=== PATIENT | female | born 2000 | race Caucasian/White ===

== ENCOUNTER 2023-03-14 17:11 | Inpatient (IN) | payer MEDICAID ==
[~2023-03-14] VITALS: Ht 160 cm; Wt 59.7 kg
[2023-03-14 20:12] LABS: BASOPHILS % (AUTO) 0.5 % (0.0-2.0); EOSINOPHILS % (AUTO) 0.9 % (1.0-6.0); LYMPHOCYTES # (AUTO) 2.3 K/uL (1.0-4.8); LYMPHOCYTES % (AUTO) 25.9 % (22.0-44.0); MEAN CORPUSCULAR HGB CONC 32.7 G/dL (31.0-37.0); MEAN CORPUSCULAR VOLUME 86 fL (80-100); MONOCYTES # (AUTO) 0.5 K/uL (0.1-1.0); MONOCYTES % (AUTO) 5.5 % (2.0-9.0); NEUTROPHILS # (AUTO) 5.9 K/uL (1.8-7.7); NEUTROPHILS % (AUTO) 67.2 % (40.0-70.0); PLATELET COUNT (AUTO) 194 K/uL (150-450); RED BLOOD CELL COUNT(AUTO) 5.01 MIL/uL (4.00-5.20); RED CELL DISTRIBUTION WIDTH 13.6 % (11.5-14.5); WHITE BLOOD COUNT (AUTO) 8.8 K/uL (4.5-11.0)
[2023-03-14 20:18] LABS: ANION GAP 14 mmol/L (8-16); CARBON DIOXIDE 22 mmol/L (22-29); CHLORIDE 104 mmol/L (98-107); CREATININE 0.66 mg/dL (0.60-1.30); GLOMERULAR FILTR. RATE CALC > 60 mL/min (>60); GLUCOSE,RANDOM 93 mg/dL (70-110); POTASSIUM 3.4 mmol/L (3.5-5.1); SODIUM SERUM 140 mmol/L (136-145); UREA NITROGEN, BLOOD 13 mg/dL (7-18)
[2023-03-14 20:24] LABS: ALANINE AMINOTRANSFERASE 30 U/L (12-78); ALBUMIN 4.2 g/dL (3.4-5.0); ALKALINE PHOSPHATASE 88 U/L (46-116); ASPARTATE AMINOTRANSFERASE 23 U/L (15-37); BILIRUBIN,TOTAL 0.3 mg/dL (0.1-1.0); TOTAL PROTEIN, SERUM 7.8 g/dL (6.4-8.2)
[2023-03-14 20:29] LABS: ALCOHOL, BLOOD (SERUM) < 3 mg/dL (0-10)
[2023-03-14 23:22] LABS: COVID AG,FIA SOURCE NASOPHARYNGEAL
[2023-03-14 23:25] LABS: SARS-COV2 (COVID) ANTIGEN,FIA Negative (Negative)
[2023-03-15] MEDS ORDERED: POTASSIUM CHLORIDE 10% 40 MEQ/30 ML LIQUID UDCUP PO ONE (01:00)
[2023-03-15 07:54] LABS: ALCOHOL, URINE DRUG SCREEN NEGATIVE (NEGATIVE); AMPHET/METH SCREEN,URINE NEGATIVE (NEGATIVE); BARBITURATE SCREEN, URINE NEGATIVE (NEGATIVE); BENZODIAZEPINES SCREEN,URINE NEGATIVE (NEGATIVE); CANNABINOID SCREEN,URINE NEGATIVE (NEGATIVE); COCAINE SCREEN,URINE NEGATIVE (NEGATIVE); METHADONE SCREEN, URINE NEGATIVE (NEGATIVE); OPIATE SCREEN,URINE NEGATIVE (NEGATIVE); PHENCYCLIDINE SCREEN,URINE NEGATIVE (NEGATIVE)
[2023-03-15] MEDS ORDERED: PROMETHAZINE HCL 25 MG TABLET PO PRN (09:00)
[2023-03-15] MEDS ORDERED: LOPERAMIDE HCL 2 MG CAPSULE PO PRN (09:00)
[2023-03-15] MEDS ORDERED: TUBERCULIN, PURIFIED PROTEIN DERIVATIVE 5 TU/0.1 ML SYRINGE ID ONE (09:00)
[2023-03-15] MEDS ORDERED: MAG HYDROX/ALUMINUM HYD/SIMETH ES 30 ML SUSPENSION UDCUP PO PRN (09:00)
[2023-03-15] MEDS ORDERED: MAGNESIUM HYDROXIDE SUSPENSION 30 ML UDCUP PO PRN (09:00)
[2023-03-15] MEDS ORDERED: HydrOXYzine PAMOATE 50 MG CAPSULE PO PRN (09:00)
[2023-03-15] MEDS ORDERED: ZOLPIDEM TARTRATE 10 MG TABLET PO PRN (09:00)
[2023-03-15] MEDS ORDERED: GuaiFENesin/D-METHORPHAN [SUGAR-FREE] 200-20MG/10 ML SYRUP UDCUP PO PRN (09:00)
[2023-03-15] MEDS: FOLIC ACID 1 MG TABLET PO SCH (09:28)
[2023-03-15] MEDS: OMEGA-3/DHA/EPA/FISH OIL 1,000 MG CAPSULE PO SCH (09:29)
[2023-03-15] MEDS: THIAMINE 100 MG TABLET PO SCH ×2 (09:29→16:06)
[2023-03-15] MEDS: MULTIVITAMINS WITH MINERALS, THERAPEUTIC TABLET PO SCH (09:29)
[2023-03-15] MEDS: LORazepam 2 MG TABLET PO PRN (14:03)
[2023-03-15] MEDS: OLANZapine 5 MG RAPDIS TABLET PO PRN (14:03)
[2023-03-15] MEDS ORDERED: DiphenhydrAMINE HCL 50 MG/ML VIAL IM ONE (15:00)
[2023-03-15] MEDS ORDERED: HALOPERIDOL LACTATE 5 MG/ML VIAL IM ONE (15:00)
[2023-03-15] MEDS ORDERED: LORazepam 2 MG/ML VIAL IM ONE (15:00)
[2023-03-15 20:05] VITALS: BP 109/69; PULSE 94; RESP 18; TEMP 97.8; O2SAT 98
[2023-03-15] MEDS: DIVALPROEX SODIUM 500 MG ER TABLET PO SCH (20:31)
[2023-03-15] MEDS: MELATONIN 5 MG TABLET PO SCH (20:32)
[2023-03-15] MEDS: OLANZapine 5 MG RAPDIS TABLET PO SCH (20:32)
[2023-03-16 08:25] VITALS: RESP 16
[2023-03-16] MEDS: OMEGA-3/DHA/EPA/FISH OIL 1,000 MG CAPSULE PO SCH (08:28)
[2023-03-16] MEDS: FOLIC ACID 1 MG TABLET PO SCH (08:28)
[2023-03-16] MEDS: THIAMINE 100 MG TABLET PO SCH ×2 (08:28→16:04)
[2023-03-16] MEDS: MULTIVITAMINS WITH MINERALS, THERAPEUTIC TABLET PO SCH (08:28)
[2023-03-16 08:49] LABS: CHOL/HDL RATIO 1.8 (3.9-5.7); FREE T4 (FREE THYROXINE) 0.87 ng/dL (0.76-1.46); THYROID STIMULATING HORMONE 1.45 uIU/mL (0.36-3.74)
[2023-03-16 08:55] LABS: HEMOGLOBIN A1C 5.5 % (3.8-5.6)
[2023-03-16] MEDS: MELATONIN 5 MG TABLET PO SCH (20:06)
[2023-03-16] MEDS: DIVALPROEX SODIUM 500 MG ER TABLET PO SCH (20:06)
[2023-03-16] MEDS: OLANZapine 5 MG RAPDIS TABLET PO SCH (20:06)
[2023-03-16 20:26] VITALS: BP 103/64; PULSE 88; RESP 17; TEMP 97.6; O2SAT 97
[2023-03-17] MEDS: THIAMINE 100 MG TABLET PO SCH ×2 (08:14→16:13)
[2023-03-17] MEDS: LORazepam 2 MG TABLET PO PRN (08:14)
[2023-03-17] MEDS: OMEGA-3/DHA/EPA/FISH OIL 1,000 MG CAPSULE PO SCH (08:14)
[2023-03-17] MEDS: FOLIC ACID 1 MG TABLET PO SCH (08:14)
[2023-03-17] MEDS: MULTIVITAMINS WITH MINERALS, THERAPEUTIC TABLET PO SCH (08:14)
[2023-03-17 08:27] VITALS: RESP 16
[2023-03-17 20:11] VITALS: BP 103/53; PULSE 63; RESP 18; TEMP 97.3; O2SAT 99
[2023-03-17] MEDS: MELATONIN 5 MG TABLET PO SCH (20:30)
[2023-03-17] MEDS: OLANZapine 10 MG RAPDIS TABLET PO SCH (20:30)
[2023-03-17] MEDS: DIVALPROEX SODIUM 500 MG ER TABLET PO SCH (20:30)
[2023-03-18] VITALS (8 sets, daily range): BP systolic 93–121; BP diastolic 46–77; PULSE 69–93; RESP 17–18; TEMP 97.9–98.7; O2SAT 96–98
[2023-03-18] MEDS: THIAMINE 100 MG TABLET PO SCH ×2 (09:05→17:46)
[2023-03-18] MEDS: OMEGA-3/DHA/EPA/FISH OIL 1,000 MG CAPSULE PO SCH (09:05)
[2023-03-18] MEDS: MULTIVITAMINS WITH MINERALS, THERAPEUTIC TABLET PO SCH (09:06)
[2023-03-18] MEDS: FOLIC ACID 1 MG TABLET PO SCH (09:06)
[2023-03-18] MEDS: LORazepam 2 MG TABLET PO PRN (09:06)
[2023-03-18] MEDS: OLANZapine 10 MG RAPDIS TABLET PO SCH (21:00)
[2023-03-18] MEDS: DIVALPROEX SODIUM 500 MG ER TABLET PO SCH (21:00)
[2023-03-18] MEDS: MELATONIN 5 MG TABLET PO SCH (21:00)
[2023-03-19 08:38] VITALS: BP 108/67; PULSE 74; RESP 16; TEMP 98.3; O2SAT 99
[2023-03-19] MEDS: OMEGA-3/DHA/EPA/FISH OIL 1,000 MG CAPSULE PO SCH (08:47)
[2023-03-19] MEDS: FOLIC ACID 1 MG TABLET PO SCH (08:47)
[2023-03-19] MEDS: MULTIVITAMINS WITH MINERALS, THERAPEUTIC TABLET PO SCH (08:47)
[2023-03-19] MEDS: THIAMINE 100 MG TABLET PO SCH ×2 (08:47→16:06)
[2023-03-19 20:10] VITALS: BP 118/67; PULSE 72; RESP 19; TEMP 97.8; O2SAT 100
[2023-03-19] MEDS: MELATONIN 5 MG TABLET PO SCH (20:45)
[2023-03-19] MEDS: OLANZapine 10 MG RAPDIS TABLET PO SCH (20:45)
[2023-03-19] MEDS: DIVALPROEX SODIUM 500 MG ER TABLET PO SCH (20:45)
[2023-03-20 08:02] VITALS: BP 111/62; PULSE 81; RESP 16; TEMP 98.1; O2SAT 99
[2023-03-20] MEDS: FOLIC ACID 1 MG TABLET PO SCH (08:56)
[2023-03-20] MEDS: MULTIVITAMINS WITH MINERALS, THERAPEUTIC TABLET PO SCH (08:56)
[2023-03-20] MEDS: THIAMINE 100 MG TABLET PO SCH ×2 (08:56→16:31)
[2023-03-20] MEDS: OMEGA-3/DHA/EPA/FISH OIL 1,000 MG CAPSULE PO SCH (08:56)
[2023-03-20] MEDS: LORazepam 2 MG TABLET PO PRN (08:57)
[2023-03-20 20:25] VITALS: BP 111/61; PULSE 101; RESP 19; TEMP 98.3; O2SAT 100
[2023-03-20] MEDS: MELATONIN 5 MG TABLET PO SCH (21:24)
[2023-03-20] MEDS: OLANZapine 10 MG RAPDIS TABLET PO SCH (21:24)
[2023-03-20] MEDS: DIVALPROEX SODIUM 500 MG ER TABLET PO SCH (21:25)
[2023-03-21] MEDS: OMEGA-3/DHA/EPA/FISH OIL 1,000 MG CAPSULE PO SCH (08:17)
[2023-03-21] MEDS: LORazepam 2 MG TABLET PO PRN (08:17)
[2023-03-21] MEDS: THIAMINE 100 MG TABLET PO SCH ×2 (08:17→16:37)
[2023-03-21] MEDS: MULTIVITAMINS WITH MINERALS, THERAPEUTIC TABLET PO SCH (08:17)
[2023-03-21] MEDS: FOLIC ACID 1 MG TABLET PO SCH (08:17)
[2023-03-21 08:24] VITALS: BP 113/67; PULSE 89; RESP 18; TEMP 96.9; O2SAT 98
[2023-03-21 20:14] VITALS: BP 106/61; PULSE 70; RESP 19; TEMP 98.3; O2SAT 96
[2023-03-21] MEDS: MELATONIN 5 MG TABLET PO SCH (20:34)
[2023-03-21] MEDS: OLANZapine 10 MG RAPDIS TABLET PO SCH (20:34)
[2023-03-21] MEDS: DIVALPROEX SODIUM 500 MG ER TABLET PO SCH (20:34)
[2023-03-22] MEDS: LITHIUM CARBONATE 300 MG CAPSULE PO SCH ×2 (06:29→16:47)
[2023-03-22 08:58] VITALS: BP 116/64; PULSE 75; RESP 17; TEMP 98; O2SAT 100
[2023-03-22] MEDS: OMEGA-3/DHA/EPA/FISH OIL 1,000 MG CAPSULE PO SCH (09:03)
[2023-03-22] MEDS: MULTIVITAMINS WITH MINERALS, THERAPEUTIC TABLET PO SCH (09:03)
[2023-03-22] MEDS: FOLIC ACID 1 MG TABLET PO SCH (09:03)
[2023-03-22] MEDS: THIAMINE 100 MG TABLET PO SCH ×2 (09:03→16:47)
[2023-03-22] MEDS: LORazepam 2 MG TABLET PO PRN (10:50)
[2023-03-22 20:12] VITALS: BP 110/59; PULSE 78; RESP 16; TEMP 99.1; O2SAT 96
[2023-03-22] MEDS: DIVALPROEX SODIUM 500 MG ER TABLET PO SCH (20:33)
[2023-03-22] MEDS: MELATONIN 5 MG TABLET PO SCH (20:33)
[2023-03-22] MEDS: OLANZapine 10 MG RAPDIS TABLET PO SCH (20:33)
[2023-03-23] MEDS: LITHIUM CARBONATE 300 MG CAPSULE PO SCH ×2 (06:23→16:37)
[2023-03-23] MEDS: FOLIC ACID 1 MG TABLET PO SCH (08:29)
[2023-03-23] MEDS: OMEGA-3/DHA/EPA/FISH OIL 1,000 MG CAPSULE PO SCH (08:29)
[2023-03-23] MEDS: THIAMINE 100 MG TABLET PO SCH ×2 (08:29→16:37)
[2023-03-23] MEDS: MULTIVITAMINS WITH MINERALS, THERAPEUTIC TABLET PO SCH (08:29)
[2023-03-23 08:47] VITALS: BP 102/62; PULSE 63; RESP 18; TEMP 97.6; O2SAT 95
[2023-03-23] MEDS ORDERED: LORazepam 2 MG/ML VIAL IM ONE (12:15)
[2023-03-23] MEDS ORDERED: DiphenhydrAMINE HCL 50 MG/ML VIAL IM ONE (12:15)
[2023-03-23] MEDS ORDERED: HALOPERIDOL LACTATE 5 MG/ML VIAL IM ONE (12:15)
[2023-03-23] MEDS: OLANZapine 5 MG RAPDIS TABLET PO PRN (12:56)
[2023-03-23] MEDS: LORazepam 2 MG TABLET PO PRN (12:56)
[2023-03-23 20:16] VITALS: BP 104/63; PULSE 70; RESP 18; TEMP 97.9; O2SAT 100
[2023-03-23] MEDS: MELATONIN 5 MG TABLET PO SCH (20:41)
[2023-03-23] MEDS: OLANZapine 10 MG RAPDIS TABLET PO SCH (20:41)
[2023-03-23] MEDS: TraZODone HCL 50 MG TABLET PO SCH (20:41)
[2023-03-23] MEDS: DIVALPROEX SODIUM 500 MG ER TABLET PO SCH (20:41)
[2023-03-24] MEDS: LITHIUM CARBONATE 300 MG CAPSULE PO SCH ×2 (07:12→17:06)
[2023-03-24 08:41] VITALS: BP 101/64; PULSE 75; RESP 18; TEMP 97.4; O2SAT 97
[2023-03-24] MEDS: LORazepam 2 MG TABLET PO PRN (08:41)
[2023-03-24] MEDS: OMEGA-3/DHA/EPA/FISH OIL 1,000 MG CAPSULE PO SCH (08:42)
[2023-03-24] MEDS: FOLIC ACID 1 MG TABLET PO SCH (08:43)
[2023-03-24] MEDS: THIAMINE 100 MG TABLET PO SCH (08:43)
[2023-03-24] MEDS: MULTIVITAMINS WITH MINERALS, THERAPEUTIC TABLET PO SCH (08:43)
[2023-03-24] MEDS: DIVALPROEX SODIUM 500 MG ER TABLET PO SCH (20:25)
[2023-03-24] MEDS: TraZODone HCL 50 MG TABLET PO SCH (20:25)
[2023-03-24] MEDS: OLANZapine 10 MG RAPDIS TABLET PO SCH (20:26)
[2023-03-24] MEDS: MELATONIN 5 MG TABLET PO SCH (20:26)
[2023-03-24 20:35] VITALS: BP 100/72; PULSE 98; RESP 18; TEMP 97.7; O2SAT 98
[2023-03-25] MEDS: LORazepam 2 MG TABLET PO PRN (08:12)
[2023-03-25] MEDS: MULTIVITAMINS WITH MINERALS, THERAPEUTIC TABLET PO SCH (08:12)
[2023-03-25] MEDS: OMEGA-3/DHA/EPA/FISH OIL 1,000 MG CAPSULE PO SCH (08:12)
[2023-03-25] MEDS: LITHIUM CARBONATE 300 MG CAPSULE PO SCH ×4 (08:12→21:32)
[2023-03-25 08:38] VITALS: BP 107/67; PULSE 82; RESP 18; TEMP 97.7; O2SAT 95
[2023-03-25 20:25] VITALS: BP 115/65; PULSE 80; RESP 17; TEMP 98.5; O2SAT 97
[2023-03-25] MEDS: DIVALPROEX SODIUM 500 MG ER TABLET PO SCH (21:31)
[2023-03-25] MEDS: MELATONIN 5 MG TABLET PO SCH (21:31)
[2023-03-25] MEDS: TraZODone HCL 50 MG TABLET PO SCH (21:32)
[2023-03-25] MEDS: OLANZapine 10 MG RAPDIS TABLET PO SCH (21:32)
[2023-03-26 08:23] VITALS: BP 115/68; PULSE 95; RESP 20; TEMP 97.6; O2SAT 98
[2023-03-26] MEDS: MULTIVITAMINS WITH MINERALS, THERAPEUTIC TABLET PO SCH (08:28)
[2023-03-26] MEDS: LORazepam 2 MG TABLET PO PRN (08:29)
[2023-03-26] MEDS: LITHIUM CARBONATE 300 MG CAPSULE PO SCH ×4 (08:29→20:56)
[2023-03-26] MEDS: OMEGA-3/DHA/EPA/FISH OIL 1,000 MG CAPSULE PO SCH (08:29)
[2023-03-26 20:38] VITALS: BP 119/74; PULSE 85; RESP 18; TEMP 98.1; O2SAT 98
[2023-03-26] MEDS: DIVALPROEX SODIUM 500 MG ER TABLET PO SCH (20:56)
[2023-03-26] MEDS: MELATONIN 5 MG TABLET PO SCH (20:56)
[2023-03-26] MEDS: OLANZapine 10 MG RAPDIS TABLET PO SCH (20:56)
[2023-03-26] MEDS: TraZODone HCL 50 MG TABLET PO SCH (20:56)
[2023-03-27] MEDS: LORazepam 2 MG TABLET PO PRN (08:23)
[2023-03-27] MEDS: LITHIUM CARBONATE 300 MG CAPSULE PO SCH ×4 (08:23→20:54)
[2023-03-27] MEDS: MULTIVITAMINS WITH MINERALS, THERAPEUTIC TABLET PO SCH (08:23)
[2023-03-27] MEDS: OMEGA-3/DHA/EPA/FISH OIL 1,000 MG CAPSULE PO SCH (08:24)
[2023-03-27 08:37] VITALS: BP 100/61; PULSE 94; RESP 18; TEMP 97.4; O2SAT 96
[2023-03-27 20:51] VITALS: BP 104/61; PULSE 98; RESP 18; TEMP 98.2; O2SAT 98
[2023-03-27] MEDS: OLANZapine 10 MG RAPDIS TABLET PO SCH (20:54)
[2023-03-27] MEDS: TraZODone HCL 50 MG TABLET PO SCH (20:54)
[2023-03-27] MEDS: DIVALPROEX SODIUM 500 MG ER TABLET PO SCH (20:54)
[2023-03-27] MEDS: MELATONIN 5 MG TABLET PO SCH (20:54)
[2023-03-28] MEDS: MULTIVITAMINS WITH MINERALS, THERAPEUTIC TABLET PO SCH (09:04)
[2023-03-28] MEDS: LITHIUM CARBONATE 300 MG CAPSULE PO SCH ×4 (09:04→20:38)
[2023-03-28] MEDS: LORazepam 2 MG TABLET PO PRN (09:05)
[2023-03-28] MEDS: OMEGA-3/DHA/EPA/FISH OIL 1,000 MG CAPSULE PO SCH (09:05)
[2023-03-28 10:00] VITALS: BP 140/89; PULSE 80; RESP 20; TEMP 98.5; O2SAT 97
[2023-03-28] MEDS: ACETAMINOPHEN 325 MG TABLET PO PRN (17:09)
[2023-03-28] MEDS: OLANZapine 10 MG RAPDIS TABLET PO SCH (20:38)
[2023-03-28] MEDS: MELATONIN 5 MG TABLET PO SCH (20:38)
[2023-03-28] MEDS: TraZODone HCL 50 MG TABLET PO SCH (20:38)
[2023-03-28] MEDS: DIVALPROEX SODIUM 500 MG ER TABLET PO SCH (20:38)
[2023-03-28 20:40] VITALS: BP 111/80; PULSE 98; RESP 17; TEMP 98.7; O2SAT 98
[2023-03-29 08:28] LABS: APPEARANCE,URINE CLEAR (CLEAR); BILIRUBIN,URINE NEGATIVE (NEGATIVE); COLOR,URINE YELLOW (YELLOW); GLUCOSE, URINE (UA) NEGATIVE (NEGATIVE); KETONES,URINE TRACE mg/dL (NEGATIVE); LEUKOCYTE ESTERASE ,URINE NEGATIVE (NEGATIVE); NITRATE,URINE NEGATIVE (NEGATIVE); OCCULT BLOOD,URINE NEGATIVE (NEGATIVE); PROTEIN,URINE TRACE mg/dL (NEGATIVE); UROBILINOGEN,URINE <=1.0 mg/dL (<=1.0)
[2023-03-29 08:29] LABS: BACTERIA,URINE None Seen /HPF (None Seen); RBC,URINE None Seen /HPF (0-2); WBC,URINE None Seen /HPF (0-5)
[2023-03-29 08:37] VITALS: BP 111/60; PULSE 94; RESP 18; TEMP 98; O2SAT 94
[2023-03-29 08:50] LABS: ALCOHOL, URINE DRUG SCREEN NEGATIVE (NEGATIVE); AMPHET/METH SCREEN,URINE NEGATIVE (NEGATIVE); BARBITURATE SCREEN, URINE NEGATIVE (NEGATIVE); BENZODIAZEPINES SCREEN,URINE NEGATIVE (NEGATIVE); CANNABINOID SCREEN,URINE NEGATIVE (NEGATIVE); COCAINE SCREEN,URINE NEGATIVE (NEGATIVE); METHADONE SCREEN, URINE NEGATIVE (NEGATIVE); OPIATE SCREEN,URINE NEGATIVE (NEGATIVE); PHENCYCLIDINE SCREEN,URINE NEGATIVE (NEGATIVE)
[2023-03-29] MEDS: LITHIUM CARBONATE 300 MG CAPSULE PO SCH ×4 (09:17→21:04)
[2023-03-29] MEDS: MULTIVITAMINS WITH MINERALS, THERAPEUTIC TABLET PO SCH (09:17)
[2023-03-29] MEDS: OMEGA-3/DHA/EPA/FISH OIL 1,000 MG CAPSULE PO SCH (09:17)
[2023-03-29] MEDS: OLANZapine 10 MG RAPDIS TABLET PO SCH (20:42)
[2023-03-29] MEDS: DIVALPROEX SODIUM 500 MG ER TABLET PO SCH (20:42)
[2023-03-29] MEDS: TraZODone HCL 50 MG TABLET PO SCH (20:42)
[2023-03-29] MEDS: MELATONIN 5 MG TABLET PO SCH (20:43)
[2023-03-29 20:47] VITALS: BP 105/67; PULSE 78; RESP 18; TEMP 98.2; O2SAT 96
[2023-03-30 08:32] VITALS: BP 125/81; PULSE 79; RESP 17; TEMP 97.9; O2SAT 97
[2023-03-30] MEDS: LITHIUM CARBONATE 300 MG CAPSULE PO SCH ×4 (09:20→20:44)
[2023-03-30] MEDS: MULTIVITAMINS WITH MINERALS, THERAPEUTIC TABLET PO SCH (09:20)
[2023-03-30] MEDS: OMEGA-3/DHA/EPA/FISH OIL 1,000 MG CAPSULE PO SCH (09:21)
[2023-03-30] MEDS: LORazepam 2 MG TABLET PO PRN (10:27)
[2023-03-30 20:35] VITALS: BP 117/60; PULSE 99; RESP 17; TEMP 98.4; O2SAT 95
[2023-03-30] MEDS: TraZODone HCL 50 MG TABLET PO SCH (20:43)
[2023-03-30] MEDS: DIVALPROEX SODIUM 500 MG ER TABLET PO SCH (20:43)
[2023-03-30] MEDS: OLANZapine 10 MG RAPDIS TABLET PO SCH (20:44)
[2023-03-30] MEDS: MELATONIN 5 MG TABLET PO SCH (20:44)
[2023-03-31] MEDS: OMEGA-3/DHA/EPA/FISH OIL 1,000 MG CAPSULE PO SCH (07:46)
[2023-03-31] MEDS: LITHIUM CARBONATE 300 MG CAPSULE PO SCH ×4 (07:46→20:32)
[2023-03-31 08:49] VITALS: BP 106/63; PULSE 92; RESP 18; TEMP 97.8; O2SAT 97
[2023-03-31] MEDS: MULTIVITAMINS WITH MINERALS, THERAPEUTIC TABLET PO SCH (09:09)
[2023-03-31] MEDS: TraZODone HCL 50 MG TABLET PO SCH (20:32)
[2023-03-31] MEDS: DIVALPROEX SODIUM 500 MG ER TABLET PO SCH (20:32)
[2023-03-31] MEDS: OLANZapine 10 MG RAPDIS TABLET PO SCH (20:33)
[2023-03-31] MEDS: MELATONIN 5 MG TABLET PO SCH (20:34)
[2023-03-31 20:44] VITALS: BP 107/62; PULSE 92; RESP 17; TEMP 98.2; O2SAT 100
[2023-04-01 08:25] VITALS: BP 102/60; PULSE 85; RESP 17; TEMP 97; O2SAT 96
[2023-04-01] MEDS: LORazepam 2 MG TABLET PO PRN (08:40)
[2023-04-01] MEDS: MULTIVITAMINS WITH MINERALS, THERAPEUTIC TABLET PO SCH (08:41)
[2023-04-01] MEDS: OMEGA-3/DHA/EPA/FISH OIL 1,000 MG CAPSULE PO SCH (08:41)
[2023-04-01] MEDS: LITHIUM CARBONATE 300 MG CAPSULE PO SCH ×4 (08:41→20:24)
[2023-04-01] MEDS: MELATONIN 5 MG TABLET PO SCH (20:24)
[2023-04-01] MEDS: TraZODone HCL 50 MG TABLET PO SCH (20:24)
[2023-04-01] MEDS: DIVALPROEX SODIUM 500 MG ER TABLET PO SCH (20:24)
[2023-04-01] MEDS: OLANZapine 10 MG RAPDIS TABLET PO SCH (20:25)
[2023-04-01 20:29] VITALS: RESP 18
[2023-04-01] MEDS: ACETAMINOPHEN 325 MG TABLET PO PRN (20:29)
[2023-04-01 21:29] VITALS: RESP 18
[2023-04-01 22:34] VITALS: BP 105/63; PULSE 96; RESP 17; TEMP 98; O2SAT 98
[2023-04-02] MEDS: OMEGA-3/DHA/EPA/FISH OIL 1,000 MG CAPSULE PO SCH (08:36)
[2023-04-02] MEDS: MULTIVITAMINS WITH MINERALS, THERAPEUTIC TABLET PO SCH (08:36)
[2023-04-02] MEDS: LITHIUM CARBONATE 300 MG CAPSULE PO SCH ×4 (08:37→20:03)
[2023-04-02 08:49] VITALS: BP 109/69; PULSE 69; RESP 17; TEMP 97.2; O2SAT 97
[2023-04-02 18:09] VITALS: RESP 18; O2SAT 97
[2023-04-02] MEDS: ACETAMINOPHEN 325 MG TABLET PO PRN (18:09)
[2023-04-02 19:09] VITALS: RESP 17
[2023-04-02] MEDS: OLANZapine 10 MG RAPDIS TABLET PO SCH (20:03)
[2023-04-02] MEDS: TraZODone HCL 50 MG TABLET PO SCH (20:03)
[2023-04-02] MEDS: DIVALPROEX SODIUM 500 MG ER TABLET PO SCH (20:03)
[2023-04-02] MEDS: MELATONIN 5 MG TABLET PO SCH (20:06)
[2023-04-02 20:35] VITALS: BP 101/60; PULSE 71; RESP 17; TEMP 98.5; O2SAT 97
[2023-04-03] MEDS: LITHIUM CARBONATE 300 MG CAPSULE PO SCH ×4 (08:29→21:15)
[2023-04-03] MEDS: OMEGA-3/DHA/EPA/FISH OIL 1,000 MG CAPSULE PO SCH (08:29)
[2023-04-03] MEDS: MULTIVITAMINS WITH MINERALS, THERAPEUTIC TABLET PO SCH (08:29)
[2023-04-03 13:53] VITALS: BP 136/72; RESP 17
[2023-04-03] MEDS: LORazepam 2 MG TABLET PO PRN (13:54)
[2023-04-03 20:19] VITALS: BP 136/72; PULSE 87; RESP 18; TEMP 98.1; O2SAT 98
[2023-04-03] MEDS: TraZODone HCL 50 MG TABLET PO SCH (21:15)
[2023-04-03] MEDS: OLANZapine 10 MG RAPDIS TABLET PO SCH (21:15)
[2023-04-03] MEDS: DIVALPROEX SODIUM 500 MG ER TABLET PO SCH (21:15)
[2023-04-03] MEDS: MELATONIN 5 MG TABLET PO SCH (21:16)
[2023-04-04] MEDS: LITHIUM CARBONATE 300 MG CAPSULE PO SCH ×4 (08:34→20:41)
[2023-04-04] MEDS: LORazepam 2 MG TABLET PO PRN (08:34)
[2023-04-04] MEDS: MULTIVITAMINS WITH MINERALS, THERAPEUTIC TABLET PO SCH (08:34)
[2023-04-04] MEDS: OMEGA-3/DHA/EPA/FISH OIL 1,000 MG CAPSULE PO SCH (08:34)
[2023-04-04 08:40] VITALS: BP 115/60; PULSE 68; RESP 18; TEMP 97.8; O2SAT 98
[2023-04-04] MEDS: MELATONIN 5 MG TABLET PO SCH (20:41)
[2023-04-04] MEDS: TraZODone HCL 50 MG TABLET PO SCH (20:41)
[2023-04-04] MEDS: DIVALPROEX SODIUM 500 MG ER TABLET PO SCH (20:41)
[2023-04-04] MEDS: OLANZapine 10 MG RAPDIS TABLET PO SCH (20:41)
[2023-04-04 20:47] VITALS: BP 108/64; PULSE 82; RESP 18; TEMP 97.8; O2SAT 98
[2023-04-05 08:35] VITALS: BP 116/58; PULSE 74; RESP 18; TEMP 98.2; O2SAT 95
[2023-04-05] MEDS: MULTIVITAMINS WITH MINERALS, THERAPEUTIC TABLET PO SCH (08:46)
[2023-04-05] MEDS: OMEGA-3/DHA/EPA/FISH OIL 1,000 MG CAPSULE PO SCH (08:46)
[2023-04-05] MEDS: LITHIUM CARBONATE 300 MG CAPSULE PO SCH ×4 (08:46→20:14)
[2023-04-05] MEDS ORDERED: MELA5TAB40 PO (13:51)
[2023-04-05] MEDS ORDERED: DIVA500T69 PO (13:51)
[2023-04-05] MEDS ORDERED: OMEG-135 PO (13:51)
[2023-04-05] MEDS ORDERED: OLAN10TA26 PO (13:51)
[2023-04-05] MEDS ORDERED: TRAZ-252 PO (13:51)
[2023-04-05] MEDS ORDERED: LITH300C3 PO (13:51)
[2023-04-05] MEDS: DIVALPROEX SODIUM 500 MG ER TABLET PO SCH (20:14)
[2023-04-05] MEDS: OLANZapine 10 MG RAPDIS TABLET PO SCH (20:14)
[2023-04-05] MEDS: TraZODone HCL 50 MG TABLET PO SCH (20:14)
[2023-04-05] MEDS: MELATONIN 5 MG TABLET PO SCH (20:17)
[2023-04-05 20:39] VITALS: BP 101/59; PULSE 93; RESP 18; TEMP 97.8; O2SAT 96
[2023-04-06] MEDS: MULTIVITAMINS WITH MINERALS, THERAPEUTIC TABLET PO SCH (08:24)
[2023-04-06] MEDS: LITHIUM CARBONATE 300 MG CAPSULE PO SCH ×4 (08:25→21:51)
[2023-04-06] MEDS: OMEGA-3/DHA/EPA/FISH OIL 1,000 MG CAPSULE PO SCH (08:25)
[2023-04-06 08:48] VITALS: BP 101/60; PULSE 74; RESP 17; TEMP 97.7; O2SAT 98
[2023-04-06 20:01] VITALS: BP 104/60; PULSE 79; RESP 18; TEMP 97.6; O2SAT 97
[2023-04-06 21:00] VITALS: BP 112/73; PULSE 76; RESP 17; TEMP 97.9
[2023-04-06] MEDS: TraZODone HCL 50 MG TABLET PO SCH (21:51)
[2023-04-06] MEDS: DIVALPROEX SODIUM 500 MG ER TABLET PO SCH (21:51)
[2023-04-06] MEDS: OLANZapine 10 MG RAPDIS TABLET PO SCH (21:51)
[2023-04-06] MEDS: MELATONIN 5 MG TABLET PO SCH (21:51)
[2023-04-07] MEDS: OMEGA-3/DHA/EPA/FISH OIL 1,000 MG CAPSULE PO SCH (08:16)
[2023-04-07] MEDS: LITHIUM CARBONATE 300 MG CAPSULE PO SCH ×4 (08:16→21:06)
[2023-04-07] MEDS: MULTIVITAMINS WITH MINERALS, THERAPEUTIC TABLET PO SCH (08:16)
[2023-04-07 08:25] VITALS: BP 118/70; PULSE 76; RESP 17; TEMP 98.1; O2SAT 97
[2023-04-07 20:43] VITALS: BP 102/65; PULSE 72; RESP 17; TEMP 98.1; O2SAT 98
[2023-04-07] MEDS: OLANZapine 5 MG RAPDIS TABLET PO PRN (21:02)
[2023-04-07] MEDS: DIVALPROEX SODIUM 500 MG ER TABLET PO SCH (21:06)
[2023-04-07] MEDS: TraZODone HCL 50 MG TABLET PO SCH (21:06)
[2023-04-07] MEDS: OLANZapine 10 MG RAPDIS TABLET PO SCH (21:06)
[2023-04-07] MEDS: MELATONIN 5 MG TABLET PO SCH (21:07)
[2023-04-08 08:51] VITALS: BP 108/68; PULSE 64; RESP 18; TEMP 97.7; O2SAT 97
[2023-04-08] MEDS: OMEGA-3/DHA/EPA/FISH OIL 1,000 MG CAPSULE PO SCH (08:51)
[2023-04-08] MEDS: LITHIUM CARBONATE 300 MG CAPSULE PO SCH ×4 (08:51→20:43)
[2023-04-08] MEDS: MULTIVITAMINS WITH MINERALS, THERAPEUTIC TABLET PO SCH (08:51)
[2023-04-08 20:00] VITALS: BP 114/69; PULSE 99; RESP 18; TEMP 98.1; O2SAT 96
[2023-04-08] MEDS: OLANZapine 10 MG RAPDIS TABLET PO SCH (20:43)
[2023-04-08] MEDS: MELATONIN 5 MG TABLET PO SCH (20:43)
[2023-04-08] MEDS: TraZODone HCL 50 MG TABLET PO SCH (20:43)
[2023-04-08] MEDS: DIVALPROEX SODIUM 500 MG ER TABLET PO SCH (20:43)
[2023-04-09 09:06] VITALS: BP 109/59; PULSE 89; RESP 17; TEMP 97.8; O2SAT 96
[2023-04-09] MEDS: LITHIUM CARBONATE 300 MG CAPSULE PO SCH ×4 (09:07→20:07)
[2023-04-09] MEDS: MULTIVITAMINS WITH MINERALS, THERAPEUTIC TABLET PO SCH (09:07)
[2023-04-09] MEDS: OMEGA-3/DHA/EPA/FISH OIL 1,000 MG CAPSULE PO SCH (09:07)
[2023-04-09 20:00] VITALS: BP 109/64; PULSE 77; RESP 18; TEMP 97.7; O2SAT 96
[2023-04-09] MEDS: DIVALPROEX SODIUM 500 MG ER TABLET PO SCH (20:07)
[2023-04-09] MEDS: TraZODone HCL 50 MG TABLET PO SCH (20:07)
[2023-04-09] MEDS: OLANZapine 10 MG RAPDIS TABLET PO SCH (20:07)
[2023-04-09] MEDS: MELATONIN 5 MG TABLET PO SCH (20:07)
[2023-04-10 08:42] VITALS: BP 104/61; PULSE 67; RESP 18; TEMP 97.7; O2SAT 98
[2023-04-10] MEDS: LITHIUM CARBONATE 300 MG CAPSULE PO SCH ×4 (08:54→20:43)
[2023-04-10] MEDS: OMEGA-3/DHA/EPA/FISH OIL 1,000 MG CAPSULE PO SCH (08:54)
[2023-04-10] MEDS: MULTIVITAMINS WITH MINERALS, THERAPEUTIC TABLET PO SCH (08:54)
[2023-04-10] MEDS: DIVALPROEX SODIUM 500 MG ER TABLET PO SCH (20:42)
[2023-04-10] MEDS: OLANZapine 10 MG RAPDIS TABLET PO SCH (20:43)
[2023-04-10] MEDS: TraZODone HCL 50 MG TABLET PO SCH (20:43)
[2023-04-10] MEDS: MELATONIN 5 MG TABLET PO SCH (20:43)
[2023-04-10 21:28] VITALS: BP 104/56; PULSE 78; RESP 18; TEMP 98.1; O2SAT 95
[2023-04-11] MEDS: MULTIVITAMINS WITH MINERALS, THERAPEUTIC TABLET PO SCH (08:36)
[2023-04-11] MEDS: OMEGA-3/DHA/EPA/FISH OIL 1,000 MG CAPSULE PO SCH (08:37)
[2023-04-11] MEDS: LITHIUM CARBONATE 300 MG CAPSULE PO SCH ×4 (08:37→20:42)
[2023-04-11 09:42] VITALS: BP 100/65; PULSE 76; RESP 17; TEMP 97.6; O2SAT 96
[2023-04-11 20:15] VITALS: BP 105/71; PULSE 82; RESP 18; TEMP 97.7; O2SAT 97
[2023-04-11] MEDS: TraZODone HCL 50 MG TABLET PO SCH (20:42)
[2023-04-11] MEDS: MELATONIN 5 MG TABLET PO SCH (20:42)
[2023-04-11] MEDS: DIVALPROEX SODIUM 500 MG ER TABLET PO SCH (20:42)
[2023-04-11] MEDS: OLANZapine 10 MG RAPDIS TABLET PO SCH (20:42)
[2023-04-12] MEDS: OMEGA-3/DHA/EPA/FISH OIL 1,000 MG CAPSULE PO SCH (08:42)
[2023-04-12] MEDS: MULTIVITAMINS WITH MINERALS, THERAPEUTIC TABLET PO SCH (08:42)
[2023-04-12 08:43] VITALS: BP 106/69; PULSE 80; RESP 18; TEMP 97.8; O2SAT 99
[2023-04-12] MEDS: LITHIUM CARBONATE 300 MG CAPSULE PO SCH ×4 (08:43→20:37)
[2023-04-12 20:27] VITALS: BP 113/66; PULSE 82; RESP 16; TEMP 98; O2SAT 98
[2023-04-12] MEDS: DIVALPROEX SODIUM 500 MG ER TABLET PO SCH (20:36)
[2023-04-12] MEDS: MELATONIN 5 MG TABLET PO SCH (20:36)
[2023-04-12] MEDS: TraZODone HCL 50 MG TABLET PO SCH (20:36)
[2023-04-12] MEDS: OLANZapine 10 MG RAPDIS TABLET PO SCH (20:37)
[2023-04-13] MEDS: MULTIVITAMINS WITH MINERALS, THERAPEUTIC TABLET PO SCH (08:17)
[2023-04-13] MEDS: OMEGA-3/DHA/EPA/FISH OIL 1,000 MG CAPSULE PO SCH (08:17)
[2023-04-13] MEDS: LITHIUM CARBONATE 300 MG CAPSULE PO SCH ×4 (08:17→20:50)
[2023-04-13 08:23] VITALS: BP 119/63; PULSE 75; RESP 18; TEMP 97.5; O2SAT 98
[2023-04-13 20:13] VITALS: BP 100/64; PULSE 99; RESP 19; TEMP 98.4; O2SAT 99
[2023-04-13] MEDS: TraZODone HCL 50 MG TABLET PO SCH (20:50)
[2023-04-13] MEDS: DIVALPROEX SODIUM 500 MG ER TABLET PO SCH (20:51)
[2023-04-13] MEDS: OLANZapine 10 MG RAPDIS TABLET PO SCH (20:51)
[2023-04-13] MEDS: MELATONIN 5 MG TABLET PO SCH (20:51)
[2023-04-14] MEDS: OMEGA-3/DHA/EPA/FISH OIL 1,000 MG CAPSULE PO SCH (08:37)
[2023-04-14] MEDS: LITHIUM CARBONATE 300 MG CAPSULE PO SCH ×4 (08:37→20:48)
[2023-04-14] MEDS: MULTIVITAMINS WITH MINERALS, THERAPEUTIC TABLET PO SCH (08:37)
[2023-04-14 08:44] VITALS: BP 110/68; PULSE 88; RESP 18; TEMP 98.9; O2SAT 98
[2023-04-14] MEDS: OLANZapine 10 MG RAPDIS TABLET PO SCH (20:48)
[2023-04-14] MEDS: DIVALPROEX SODIUM 500 MG ER TABLET PO SCH (20:48)
[2023-04-14] MEDS: TraZODone HCL 50 MG TABLET PO SCH (20:48)
[2023-04-14] MEDS: MELATONIN 5 MG TABLET PO SCH (20:49)
[2023-04-14 22:25] VITALS: BP 113/61; PULSE 62; RESP 17; TEMP 98.3
[2023-04-15] MEDS: MULTIVITAMINS WITH MINERALS, THERAPEUTIC TABLET PO SCH (07:55)
[2023-04-15] MEDS: OMEGA-3/DHA/EPA/FISH OIL 1,000 MG CAPSULE PO SCH (07:56)
[2023-04-15] MEDS: LITHIUM CARBONATE 300 MG CAPSULE PO SCH ×4 (07:56→20:36)
[2023-04-15 09:15] VITALS: BP 110/65; PULSE 87; RESP 17; TEMP 98.1; O2SAT 99
[2023-04-15 20:03] VITALS: BP 113/68; PULSE 79; RESP 18; TEMP 97.8
[2023-04-15] MEDS: TraZODone HCL 50 MG TABLET PO SCH (20:25)
[2023-04-15] MEDS: DIVALPROEX SODIUM 500 MG ER TABLET PO SCH (20:25)
[2023-04-15] MEDS: MELATONIN 5 MG TABLET PO SCH (20:25)
[2023-04-15] MEDS: OLANZapine 10 MG RAPDIS TABLET PO SCH (20:25)
[2023-04-16] MEDS: OMEGA-3/DHA/EPA/FISH OIL 1,000 MG CAPSULE PO SCH (08:13)
[2023-04-16] MEDS: LITHIUM CARBONATE 300 MG CAPSULE PO SCH ×4 (08:13→20:07)
[2023-04-16] MEDS: MULTIVITAMINS WITH MINERALS, THERAPEUTIC TABLET PO SCH (08:13)
[2023-04-16 08:34] VITALS: BP 119/70; PULSE 87; RESP 17; TEMP 97.4; O2SAT 97
[2023-04-16] MEDS: OLANZapine 10 MG RAPDIS TABLET PO SCH (20:07)
[2023-04-16] MEDS: DIVALPROEX SODIUM 500 MG ER TABLET PO SCH (20:07)
[2023-04-16] MEDS: TraZODone HCL 50 MG TABLET PO SCH (20:07)
[2023-04-16] MEDS: MELATONIN 5 MG TABLET PO SCH (20:07)
[2023-04-16 21:17] VITALS: BP 94/61; PULSE 75; RESP 19; TEMP 98.1; O2SAT 99
[2023-04-17] MEDS: MULTIVITAMINS WITH MINERALS, THERAPEUTIC TABLET PO SCH (08:31)
[2023-04-17] MEDS: OMEGA-3/DHA/EPA/FISH OIL 1,000 MG CAPSULE PO SCH (08:31)
[2023-04-17] MEDS: LITHIUM CARBONATE 300 MG CAPSULE PO SCH ×4 (08:31→20:03)
[2023-04-17 08:38] VITALS: BP 116/66; PULSE 80; RESP 16; TEMP 98.8; O2SAT 96
[2023-04-17] MEDS: DIVALPROEX SODIUM 500 MG ER TABLET PO SCH (20:03)
[2023-04-17] MEDS: TraZODone HCL 50 MG TABLET PO SCH (20:03)
[2023-04-17] MEDS: MELATONIN 5 MG TABLET PO SCH (20:04)
[2023-04-17] MEDS: OLANZapine 10 MG RAPDIS TABLET PO SCH (20:04)
[2023-04-17 20:58] VITALS: BP 109/71; PULSE 76; RESP 17; TEMP 98.2; O2SAT 98
[2023-04-18] MEDS: MULTIVITAMINS WITH MINERALS, THERAPEUTIC TABLET PO SCH (08:38)
[2023-04-18] MEDS: OMEGA-3/DHA/EPA/FISH OIL 1,000 MG CAPSULE PO SCH (08:38)
[2023-04-18] MEDS: LITHIUM CARBONATE 300 MG CAPSULE PO SCH ×4 (08:38→20:03)
[2023-04-18 09:48] VITALS: BP 108/58; PULSE 79; RESP 17; TEMP 98; O2SAT 99
[2023-04-18] MEDS: TraZODone HCL 50 MG TABLET PO SCH (20:03)
[2023-04-18] MEDS: DIVALPROEX SODIUM 500 MG ER TABLET PO SCH (20:03)
[2023-04-18] MEDS: OLANZapine 10 MG RAPDIS TABLET PO SCH (20:04)
[2023-04-18] MEDS: MELATONIN 5 MG TABLET PO SCH (20:04)
[2023-04-18 20:33] VITALS: BP 101/61; PULSE 74; RESP 18; TEMP 97.9; O2SAT 98
[2023-04-19 08:05] VITALS: BP 108/60; PULSE 83; RESP 16; TEMP 98.9; O2SAT 97
[2023-04-19 08:24] VITALS: BP 108/60; PULSE 83; RESP 16; TEMP 98.9; O2SAT 97
[2023-04-19] MEDS: MULTIVITAMINS WITH MINERALS, THERAPEUTIC TABLET PO SCH (08:29)
[2023-04-19] MEDS: OMEGA-3/DHA/EPA/FISH OIL 1,000 MG CAPSULE PO SCH (08:29)
[2023-04-19] MEDS: LITHIUM CARBONATE 300 MG CAPSULE PO SCH ×4 (08:29→20:02)
[2023-04-19 16:31] VITALS: BP 116/67; PULSE 85; RESP 18; TEMP 98; O2SAT 100
[2023-04-19] MEDS: MELATONIN 5 MG TABLET PO SCH (20:02)
[2023-04-19] MEDS: DIVALPROEX SODIUM 500 MG ER TABLET PO SCH (20:02)
[2023-04-19] MEDS: OLANZapine 10 MG RAPDIS TABLET PO SCH (20:02)
[2023-04-19] MEDS: TraZODone HCL 50 MG TABLET PO SCH (20:02)
[2023-04-19 20:31] VITALS: BP 116/67; PULSE 85; RESP 18; TEMP 98; O2SAT 100
[2023-04-20 08:41] VITALS: BP 112/67; PULSE 82; RESP 18; TEMP 97.7; O2SAT 98
[2023-04-20] MEDS: OMEGA-3/DHA/EPA/FISH OIL 1,000 MG CAPSULE PO SCH (08:47)
[2023-04-20] MEDS: MULTIVITAMINS WITH MINERALS, THERAPEUTIC TABLET PO SCH (08:47)
[2023-04-20] MEDS: LITHIUM CARBONATE 300 MG CAPSULE PO SCH ×4 (08:47→20:43)
[2023-04-20 20:14] VITALS: BP 115/62; PULSE 86; RESP 18; TEMP 97.5; O2SAT 97
[2023-04-20] MEDS: OLANZapine 10 MG RAPDIS TABLET PO SCH (20:42)
[2023-04-20] MEDS: TraZODone HCL 50 MG TABLET PO SCH (20:42)
[2023-04-20] MEDS: MELATONIN 5 MG TABLET PO SCH (20:43)
[2023-04-20] MEDS: DIVALPROEX SODIUM 500 MG ER TABLET PO SCH (20:43)
[2023-04-21 08:25] VITALS: BP 131/70; PULSE 86; RESP 17; TEMP 98; O2SAT 100
[2023-04-21] MEDS: MULTIVITAMINS WITH MINERALS, THERAPEUTIC TABLET PO SCH (08:57)
[2023-04-21] MEDS: LITHIUM CARBONATE 300 MG CAPSULE PO SCH ×4 (08:57→20:58)
[2023-04-21] MEDS: OMEGA-3/DHA/EPA/FISH OIL 1,000 MG CAPSULE PO SCH (08:57)
[2023-04-21 20:03] VITALS: BP 128/60; PULSE 93; RESP 17; TEMP 98; O2SAT 98
[2023-04-21] MEDS: TraZODone HCL 50 MG TABLET PO SCH (20:58)
[2023-04-21] MEDS: MELATONIN 5 MG TABLET PO SCH (20:58)
[2023-04-21] MEDS: OLANZapine 10 MG RAPDIS TABLET PO SCH (20:59)
[2023-04-21] MEDS: DIVALPROEX SODIUM 500 MG ER TABLET PO SCH (21:00)
[2023-04-21 21:05] VITALS: BP 128/60; PULSE 93; RESP 17; TEMP 98; O2SAT 98
[2023-04-22] MEDS: MULTIVITAMINS WITH MINERALS, THERAPEUTIC TABLET PO SCH (08:00)
[2023-04-22] MEDS: OMEGA-3/DHA/EPA/FISH OIL 1,000 MG CAPSULE PO SCH (08:00)
[2023-04-22] MEDS: LITHIUM CARBONATE 300 MG CAPSULE PO SCH ×4 (08:00→20:20)
[2023-04-22 08:56] VITALS: BP 109/61; PULSE 92; RESP 18; TEMP 97.6; O2SAT 98
[2023-04-22] MEDS: MELATONIN 5 MG TABLET PO SCH (20:20)
[2023-04-22] MEDS: DIVALPROEX SODIUM 500 MG ER TABLET PO SCH (20:21)
[2023-04-22] MEDS: OLANZapine 10 MG RAPDIS TABLET PO SCH (20:21)
[2023-04-22] MEDS: TraZODone HCL 50 MG TABLET PO SCH (20:21)
[2023-04-22 20:48] VITALS: BP 120/65; PULSE 94; RESP 18; TEMP 97.9; O2SAT 99
[2023-04-23] MEDS: MULTIVITAMINS WITH MINERALS, THERAPEUTIC TABLET PO SCH (08:25)
[2023-04-23] MEDS: OMEGA-3/DHA/EPA/FISH OIL 1,000 MG CAPSULE PO SCH (08:26)
[2023-04-23] MEDS: LITHIUM CARBONATE 300 MG CAPSULE PO SCH ×4 (08:26→20:10)
[2023-04-23 08:59] VITALS: BP 115/74; PULSE 89; RESP 20; TEMP 98; O2SAT 100
[2023-04-23 20:00] VITALS: BP 131/82; PULSE 99; RESP 18; TEMP 98; O2SAT 99
[2023-04-23] MEDS: DIVALPROEX SODIUM 500 MG ER TABLET PO SCH (20:09)
[2023-04-23] MEDS: OLANZapine 10 MG RAPDIS TABLET PO SCH (20:10)
[2023-04-23] MEDS: MELATONIN 5 MG TABLET PO SCH (20:10)
[2023-04-23] MEDS: TraZODone HCL 50 MG TABLET PO SCH (20:10)
[2023-04-24 08:26] VITALS: BP 107/71; PULSE 92; RESP 18; TEMP 97.8; O2SAT 100
[2023-04-24] MEDS: MULTIVITAMINS WITH MINERALS, THERAPEUTIC TABLET PO SCH (08:33)
[2023-04-24] MEDS: OMEGA-3/DHA/EPA/FISH OIL 1,000 MG CAPSULE PO SCH (08:33)
[2023-04-24] MEDS: LITHIUM CARBONATE 300 MG CAPSULE PO SCH ×4 (08:33→20:45)
[2023-04-24] MEDS: OLANZapine 10 MG RAPDIS TABLET PO SCH (20:45)
[2023-04-24] MEDS: TraZODone HCL 50 MG TABLET PO SCH (20:45)
[2023-04-24] MEDS: MELATONIN 5 MG TABLET PO SCH (20:45)
[2023-04-24] MEDS: DIVALPROEX SODIUM 500 MG ER TABLET PO SCH (20:45)
[2023-04-25 00:53] VITALS: BP 112/64; PULSE 59; RESP 16; TEMP 98; O2SAT 100
[2023-04-25] MEDS: OMEGA-3/DHA/EPA/FISH OIL 1,000 MG CAPSULE PO SCH (08:15)
[2023-04-25] MEDS: LITHIUM CARBONATE 300 MG CAPSULE PO SCH ×4 (08:15→20:23)
[2023-04-25] MEDS: MULTIVITAMINS WITH MINERALS, THERAPEUTIC TABLET PO SCH (08:15)
[2023-04-25 10:21] VITALS: BP 100/77; PULSE 85; RESP 18; TEMP 97.8; O2SAT 98
[2023-04-25 20:16] VITALS: BP 113/67; PULSE 90; RESP 18; TEMP 97.9; O2SAT 97
[2023-04-25] MEDS: OLANZapine 10 MG RAPDIS TABLET PO SCH (20:23)
[2023-04-25] MEDS: MELATONIN 5 MG TABLET PO SCH (20:23)
[2023-04-25] MEDS: DIVALPROEX SODIUM 500 MG ER TABLET PO SCH (20:23)
[2023-04-25] MEDS: TraZODone HCL 50 MG TABLET PO SCH (20:23)
[2023-04-26 08:17] VITALS: BP 107/57; PULSE 79; RESP 18; TEMP 97.5; O2SAT 97
[2023-04-26] MEDS: LITHIUM CARBONATE 300 MG CAPSULE PO SCH ×4 (08:30→20:12)
[2023-04-26] MEDS: MULTIVITAMINS WITH MINERALS, THERAPEUTIC TABLET PO SCH (08:30)
[2023-04-26] MEDS: OMEGA-3/DHA/EPA/FISH OIL 1,000 MG CAPSULE PO SCH (08:30)
[2023-04-26 20:09] VITALS: BP 118/79; PULSE 79; RESP 18; TEMP 98
[2023-04-26] MEDS: TraZODone HCL 50 MG TABLET PO SCH (20:11)
[2023-04-26] MEDS: MELATONIN 5 MG TABLET PO SCH (20:12)
[2023-04-26] MEDS: OLANZapine 10 MG RAPDIS TABLET PO SCH (20:13)
[2023-04-26] MEDS: DIVALPROEX SODIUM 500 MG ER TABLET PO SCH (20:13)
[2023-04-27 08:15] VITALS: BP 115/73; PULSE 92; RESP 17; TEMP 97.5; O2SAT 98
[2023-04-27] MEDS: LITHIUM CARBONATE 300 MG CAPSULE PO SCH ×4 (08:15→20:01)
[2023-04-27] MEDS: MULTIVITAMINS WITH MINERALS, THERAPEUTIC TABLET PO SCH (08:15)
[2023-04-27] MEDS: OMEGA-3/DHA/EPA/FISH OIL 1,000 MG CAPSULE PO SCH (08:15)
[2023-04-27] MEDS: MELATONIN 5 MG TABLET PO SCH (20:01)
[2023-04-27] MEDS: DIVALPROEX SODIUM 500 MG ER TABLET PO SCH (20:01)
[2023-04-27] MEDS: TraZODone HCL 50 MG TABLET PO SCH (20:01)
[2023-04-27] MEDS: OLANZapine 10 MG RAPDIS TABLET PO SCH (20:01)
[2023-04-27 20:13] VITALS: BP 111/55; PULSE 89; RESP 18; TEMP 98.1; O2SAT 98
[2023-04-28] MEDS: LITHIUM CARBONATE 300 MG CAPSULE PO SCH ×4 (08:01→21:20)
[2023-04-28] MEDS: OMEGA-3/DHA/EPA/FISH OIL 1,000 MG CAPSULE PO SCH (08:01)
[2023-04-28] MEDS: MULTIVITAMINS WITH MINERALS, THERAPEUTIC TABLET PO SCH (08:01)
[2023-04-28 08:18] VITALS: BP 110/64; PULSE 87; RESP 18; TEMP 97.9; O2SAT 94
[2023-04-28 20:09] VITALS: BP 103/61; PULSE 80; RESP 18; TEMP 97.6; O2SAT 96
[2023-04-28] MEDS: OLANZapine 10 MG RAPDIS TABLET PO SCH (21:16)
[2023-04-28] MEDS: TraZODone HCL 50 MG TABLET PO SCH (21:18)
[2023-04-28] MEDS: DIVALPROEX SODIUM 500 MG ER TABLET PO SCH (21:18)
[2023-04-28] MEDS: MELATONIN 5 MG TABLET PO SCH (21:19)
[2023-04-29 08:18] VITALS: BP 131/67; PULSE 80; RESP 18; TEMP 97.5; O2SAT 98
[2023-04-29] MEDS: LITHIUM CARBONATE 300 MG CAPSULE PO SCH ×4 (08:36→20:08)
[2023-04-29] MEDS: MULTIVITAMINS WITH MINERALS, THERAPEUTIC TABLET PO SCH (08:36)
[2023-04-29] MEDS: OMEGA-3/DHA/EPA/FISH OIL 1,000 MG CAPSULE PO SCH (08:36)
[2023-04-29] MEDS: TraZODone HCL 50 MG TABLET PO SCH (20:08)
[2023-04-29] MEDS: MELATONIN 5 MG TABLET PO SCH (20:08)
[2023-04-29] MEDS: OLANZapine 10 MG RAPDIS TABLET PO SCH (20:08)
[2023-04-29] MEDS: DIVALPROEX SODIUM 500 MG ER TABLET PO SCH (20:08)
[2023-04-29 20:19] VITALS: BP 121/76; PULSE 87; RESP 18; TEMP 97.7; O2SAT 99
[2023-04-30] MEDS: LITHIUM CARBONATE 300 MG CAPSULE PO SCH ×4 (08:27→20:06)
[2023-04-30] MEDS: MULTIVITAMINS WITH MINERALS, THERAPEUTIC TABLET PO SCH (08:27)
[2023-04-30] MEDS: OMEGA-3/DHA/EPA/FISH OIL 1,000 MG CAPSULE PO SCH (08:27)
[2023-04-30 08:56] VITALS: BP 120/70; PULSE 80; RESP 18; TEMP 98.7; O2SAT 99
[2023-04-30 17:56] VITALS: BP 109/64; PULSE 80; RESP 18; TEMP 90.8; O2SAT 100
[2023-04-30] MEDS: MELATONIN 5 MG TABLET PO SCH (20:06)
[2023-04-30] MEDS: TraZODone HCL 50 MG TABLET PO SCH (20:06)
[2023-04-30] MEDS: DIVALPROEX SODIUM 500 MG ER TABLET PO SCH (20:06)
[2023-04-30] MEDS: OLANZapine 10 MG RAPDIS TABLET PO SCH (20:07)
[2023-04-30 20:09] VITALS: BP 110/65; PULSE 81; RESP 18; TEMP 98; O2SAT 100
[2023-05-01 08:15] VITALS: BP 104/78; PULSE 93; RESP 18; TEMP 98.8; O2SAT 98
[2023-05-01] MEDS: OMEGA-3/DHA/EPA/FISH OIL 1,000 MG CAPSULE PO SCH (08:34)
[2023-05-01] MEDS: MULTIVITAMINS WITH MINERALS, THERAPEUTIC TABLET PO SCH (08:34)
[2023-05-01] MEDS: LITHIUM CARBONATE 300 MG CAPSULE PO SCH ×4 (08:34→20:37)
[2023-05-01 20:02] VITALS: BP 110/68; PULSE 74; RESP 17; TEMP 98.3; O2SAT 99
[2023-05-01] MEDS: DIVALPROEX SODIUM 500 MG ER TABLET PO SCH (20:37)
[2023-05-01] MEDS: TraZODone HCL 50 MG TABLET PO SCH (20:37)
[2023-05-01] MEDS: MELATONIN 5 MG TABLET PO SCH (20:37)
[2023-05-01] MEDS: OLANZapine 10 MG RAPDIS TABLET PO SCH (20:38)
[2023-05-02] MEDS: OMEGA-3/DHA/EPA/FISH OIL 1,000 MG CAPSULE PO SCH (08:25)
[2023-05-02] MEDS: MULTIVITAMINS WITH MINERALS, THERAPEUTIC TABLET PO SCH (08:25)
[2023-05-02] MEDS: LITHIUM CARBONATE 300 MG CAPSULE PO SCH ×4 (08:25→20:13)
[2023-05-02 08:38] VITALS: BP 105/60; PULSE 82; RESP 17; TEMP 97.5; O2SAT 97
[2023-05-02] MEDS: OLANZapine 10 MG RAPDIS TABLET PO SCH (20:13)
[2023-05-02] MEDS: MELATONIN 5 MG TABLET PO SCH (20:13)
[2023-05-02] MEDS: TraZODone HCL 50 MG TABLET PO SCH (20:13)
[2023-05-02] MEDS: DIVALPROEX SODIUM 500 MG ER TABLET PO SCH (20:14)
[2023-05-03 00:22] VITALS: BP 98/71; PULSE 67; RESP 18; TEMP 98.2; O2SAT 99
[2023-05-03 08:20] VITALS: BP 127/76; PULSE 92; RESP 17; TEMP 97.7; O2SAT 100
[2023-05-03] MEDS: OMEGA-3/DHA/EPA/FISH OIL 1,000 MG CAPSULE PO SCH (08:39)
[2023-05-03] MEDS: MULTIVITAMINS WITH MINERALS, THERAPEUTIC TABLET PO SCH (08:40)
[2023-05-03] MEDS: LITHIUM CARBONATE 300 MG CAPSULE PO SCH ×4 (08:40→21:13)
[2023-05-03 20:19] VITALS: BP 121/71; PULSE 86; RESP 18; TEMP 98; O2SAT 96
[2023-05-03] MEDS: MELATONIN 5 MG TABLET PO SCH (21:12)
[2023-05-03] MEDS: TraZODone HCL 50 MG TABLET PO SCH (21:12)
[2023-05-03] MEDS: OLANZapine 10 MG RAPDIS TABLET PO SCH (21:12)
[2023-05-03] MEDS: DIVALPROEX SODIUM 500 MG ER TABLET PO SCH (21:13)
[2023-05-04] MEDS: OMEGA-3/DHA/EPA/FISH OIL 1,000 MG CAPSULE PO SCH (08:11)
[2023-05-04] MEDS: LITHIUM CARBONATE 300 MG CAPSULE PO SCH ×4 (08:11→20:08)
[2023-05-04] MEDS: MULTIVITAMINS WITH MINERALS, THERAPEUTIC TABLET PO SCH (08:11)
[2023-05-04 08:16] VITALS: BP 109/62; PULSE 62; RESP 18; TEMP 97.5; O2SAT 98
[2023-05-04] MEDS: TraZODone HCL 50 MG TABLET PO SCH (20:08)
[2023-05-04] MEDS: DIVALPROEX SODIUM 500 MG ER TABLET PO SCH (20:08)
[2023-05-04] MEDS: MELATONIN 5 MG TABLET PO SCH (20:08)
[2023-05-04] MEDS: OLANZapine 10 MG RAPDIS TABLET PO SCH (20:09)
[2023-05-04 20:17] VITALS: BP 105/60; PULSE 80; RESP 18; TEMP 97.6; O2SAT 97
[2023-05-05] MEDS: LITHIUM CARBONATE 300 MG CAPSULE PO SCH ×4 (08:33→20:19)
[2023-05-05] MEDS: MULTIVITAMINS WITH MINERALS, THERAPEUTIC TABLET PO SCH (08:33)
[2023-05-05] MEDS: OMEGA-3/DHA/EPA/FISH OIL 1,000 MG CAPSULE PO SCH (08:33)
[2023-05-05 08:45] VITALS: BP 110/62; PULSE 80; RESP 18; TEMP 97.6; O2SAT 97
[2023-05-05] MEDS: MELATONIN 5 MG TABLET PO SCH (20:19)
[2023-05-05] MEDS: TraZODone HCL 50 MG TABLET PO SCH (20:19)
[2023-05-05] MEDS: DIVALPROEX SODIUM 500 MG ER TABLET PO SCH (20:19)
[2023-05-05] MEDS: OLANZapine 10 MG RAPDIS TABLET PO SCH (20:20)
[2023-05-05 21:36] VITALS: BP 101/64; PULSE 20; RESP 20; TEMP 98.2
[2023-05-06 08:42] VITALS: BP 109/69; PULSE 79; RESP 20; TEMP 98.3; O2SAT 97
[2023-05-06] MEDS: MULTIVITAMINS WITH MINERALS, THERAPEUTIC TABLET PO SCH (09:21)
[2023-05-06] MEDS: LITHIUM CARBONATE 300 MG CAPSULE PO SCH ×4 (09:21→20:12)
[2023-05-06] MEDS: OMEGA-3/DHA/EPA/FISH OIL 1,000 MG CAPSULE PO SCH (09:22)
[2023-05-06] MEDS: DIVALPROEX SODIUM 500 MG ER TABLET PO SCH (20:12)
[2023-05-06] MEDS: OLANZapine 10 MG RAPDIS TABLET PO SCH (20:12)
[2023-05-06] MEDS: TraZODone HCL 50 MG TABLET PO SCH (20:12)
[2023-05-06] MEDS: MELATONIN 5 MG TABLET PO SCH (20:12)
[2023-05-06 20:23] VITALS: BP 129/70; PULSE 83; RESP 18; TEMP 98.1; O2SAT 98
[2023-05-07] MEDS: OMEGA-3/DHA/EPA/FISH OIL 1,000 MG CAPSULE PO SCH (08:19)
[2023-05-07] MEDS: LITHIUM CARBONATE 300 MG CAPSULE PO SCH ×4 (08:19→20:11)
[2023-05-07] MEDS: MULTIVITAMINS WITH MINERALS, THERAPEUTIC TABLET PO SCH (08:19)
[2023-05-07 10:53] VITALS: BP 100/57; PULSE 87; RESP 18; TEMP 98.1; O2SAT 96
[2023-05-07] MEDS: OLANZapine 10 MG RAPDIS TABLET PO SCH (20:03)
[2023-05-07] MEDS: DIVALPROEX SODIUM 500 MG ER TABLET PO SCH (20:03)
[2023-05-07] MEDS: MELATONIN 5 MG TABLET PO SCH (20:04)
[2023-05-07] MEDS: TraZODone HCL 50 MG TABLET PO SCH (20:04)
[2023-05-07 20:34] VITALS: BP 118/72; PULSE 84; RESP 18; TEMP 97.9; O2SAT 97
[2023-05-08 08:13] VITALS: BP 109/62; PULSE 77; RESP 18; TEMP 97.7; O2SAT 98
[2023-05-08] MEDS: LITHIUM CARBONATE 300 MG CAPSULE PO SCH ×4 (08:34→21:21)
[2023-05-08] MEDS: MULTIVITAMINS WITH MINERALS, THERAPEUTIC TABLET PO SCH (08:35)
[2023-05-08] MEDS: OMEGA-3/DHA/EPA/FISH OIL 1,000 MG CAPSULE PO SCH (08:35)
[2023-05-08] MEDS: MELATONIN 5 MG TABLET PO SCH (21:21)
[2023-05-08] MEDS: OLANZapine 10 MG RAPDIS TABLET PO SCH (21:21)
[2023-05-08] MEDS: DIVALPROEX SODIUM 500 MG ER TABLET PO SCH (21:21)
[2023-05-08] MEDS: TraZODone HCL 50 MG TABLET PO SCH (21:22)
[2023-05-08 22:09] VITALS: BP 113/60; PULSE 66; RESP 18; TEMP 97.5; O2SAT 99
[2023-05-09] MEDS: LITHIUM CARBONATE 300 MG CAPSULE PO SCH ×4 (08:22→20:02)
[2023-05-09] MEDS: OMEGA-3/DHA/EPA/FISH OIL 1,000 MG CAPSULE PO SCH (08:23)
[2023-05-09] MEDS: MULTIVITAMINS WITH MINERALS, THERAPEUTIC TABLET PO SCH (08:29)
[2023-05-09 09:38] VITALS: BP 125/83; PULSE 91; RESP 16; TEMP 97.8; O2SAT 99
[2023-05-09] MEDS: DIVALPROEX SODIUM 500 MG ER TABLET PO SCH (20:02)
[2023-05-09] MEDS: TraZODone HCL 50 MG TABLET PO SCH (20:02)
[2023-05-09] MEDS: OLANZapine 10 MG RAPDIS TABLET PO SCH (20:02)
[2023-05-09] MEDS: MELATONIN 5 MG TABLET PO SCH (20:02)
[2023-05-09 20:08] VITALS: BP 122/67; PULSE 89; RESP 18; TEMP 98.1; O2SAT 98
[2023-05-10 08:21] VITALS: BP 113/62; PULSE 62; RESP 18; TEMP 97.9; O2SAT 96
[2023-05-10] MEDS: OMEGA-3/DHA/EPA/FISH OIL 1,000 MG CAPSULE PO SCH (08:31)
[2023-05-10] MEDS: LITHIUM CARBONATE 300 MG CAPSULE PO SCH ×4 (08:31→20:43)
[2023-05-10] MEDS: MULTIVITAMINS WITH MINERALS, THERAPEUTIC TABLET PO SCH (08:31)
[2023-05-10] MEDS: DIVALPROEX SODIUM 500 MG ER TABLET PO SCH (20:43)
[2023-05-10] MEDS: TraZODone HCL 50 MG TABLET PO SCH (20:43)
[2023-05-10] MEDS: OLANZapine 10 MG RAPDIS TABLET PO SCH (20:43)
[2023-05-10] MEDS: MELATONIN 5 MG TABLET PO SCH (20:43)
[2023-05-10 21:44] VITALS: BP 119/83; PULSE 74; RESP 17; TEMP 97.7; O2SAT 95
[2023-05-11 08:25] VITALS: BP 107/64; PULSE 72; RESP 17; TEMP 97.5; O2SAT 95
[2023-05-11] MEDS: MULTIVITAMINS WITH MINERALS, THERAPEUTIC TABLET PO SCH (08:25)
[2023-05-11] MEDS: OMEGA-3/DHA/EPA/FISH OIL 1,000 MG CAPSULE PO SCH (08:26)
[2023-05-11] MEDS: LITHIUM CARBONATE 300 MG CAPSULE PO SCH ×4 (08:26→22:10)
[2023-05-11 20:39] VITALS: BP 102/60; PULSE 70; RESP 18; TEMP 97.7; O2SAT 97
[2023-05-11] MEDS: OLANZapine 10 MG RAPDIS TABLET PO SCH (20:52)
[2023-05-11] MEDS: MELATONIN 5 MG TABLET PO SCH (20:52)
[2023-05-11] MEDS: TraZODone HCL 50 MG TABLET PO SCH (20:52)
[2023-05-11] MEDS: DIVALPROEX SODIUM 500 MG ER TABLET PO SCH (20:52)
[2023-05-12 08:11] VITALS: BP 126/66; PULSE 87; RESP 18; TEMP 97.7; O2SAT 98
[2023-05-12] MEDS: LITHIUM CARBONATE 300 MG CAPSULE PO SCH ×4 (08:42→20:04)
[2023-05-12] MEDS: MULTIVITAMINS WITH MINERALS, THERAPEUTIC TABLET PO SCH (08:42)
[2023-05-12] MEDS: OMEGA-3/DHA/EPA/FISH OIL 1,000 MG CAPSULE PO SCH (08:42)
[2023-05-12] MEDS: DIVALPROEX SODIUM 500 MG ER TABLET PO SCH (20:04)
[2023-05-12] MEDS: MELATONIN 5 MG TABLET PO SCH (20:04)
[2023-05-12] MEDS: OLANZapine 10 MG RAPDIS TABLET PO SCH (20:04)
[2023-05-12] MEDS: TraZODone HCL 50 MG TABLET PO SCH (20:04)
[2023-05-12 20:15] VITALS: BP 131/71; PULSE 78; RESP 19; TEMP 97.9; O2SAT 98
[2023-05-13] MEDS: OMEGA-3/DHA/EPA/FISH OIL 1,000 MG CAPSULE PO SCH (08:11)
[2023-05-13] MEDS: LITHIUM CARBONATE 300 MG CAPSULE PO SCH ×4 (08:12→20:05)
[2023-05-13] MEDS: MULTIVITAMINS WITH MINERALS, THERAPEUTIC TABLET PO SCH (08:12)
[2023-05-13 08:18] VITALS: BP 100/59; PULSE 77; RESP 17; TEMP 98.1; O2SAT 96
[2023-05-13] MEDS: TraZODone HCL 50 MG TABLET PO SCH (20:05)
[2023-05-13] MEDS: MELATONIN 5 MG TABLET PO SCH (20:05)
[2023-05-13] MEDS: DIVALPROEX SODIUM 500 MG ER TABLET PO SCH (20:05)
[2023-05-13] MEDS: OLANZapine 10 MG RAPDIS TABLET PO SCH (20:05)
[2023-05-13 20:13] VITALS: BP 131/73; PULSE 89; RESP 18; TEMP 98.2; O2SAT 99
[2023-05-14] MEDS: OMEGA-3/DHA/EPA/FISH OIL 1,000 MG CAPSULE PO SCH (08:14)
[2023-05-14] MEDS: MULTIVITAMINS WITH MINERALS, THERAPEUTIC TABLET PO SCH (08:14)
[2023-05-14] MEDS: LITHIUM CARBONATE 300 MG CAPSULE PO SCH ×4 (08:14→20:48)
[2023-05-14 08:43] VITALS: BP 110/68; PULSE 78; RESP 16; TEMP 98; O2SAT 96
[2023-05-14 20:08] VITALS: BP 107/61; PULSE 71; RESP 17; TEMP 98.2; O2SAT 99
[2023-05-14] MEDS: DIVALPROEX SODIUM 500 MG ER TABLET PO SCH (20:47)
[2023-05-14] MEDS: MELATONIN 5 MG TABLET PO SCH (20:48)
[2023-05-14] MEDS: TraZODone HCL 50 MG TABLET PO SCH (20:48)
[2023-05-14] MEDS: OLANZapine 10 MG RAPDIS TABLET PO SCH (20:49)
[2023-05-15] MEDS: OMEGA-3/DHA/EPA/FISH OIL 1,000 MG CAPSULE PO SCH (08:15)
[2023-05-15] MEDS: MULTIVITAMINS WITH MINERALS, THERAPEUTIC TABLET PO SCH (08:15)
[2023-05-15] MEDS: LITHIUM CARBONATE 300 MG CAPSULE PO SCH ×4 (08:15→20:05)
[2023-05-15 08:22] VITALS: BP 106/62; PULSE 67; RESP 16; TEMP 97.6; O2SAT 97
[2023-05-15] MEDS: TraZODone HCL 50 MG TABLET PO SCH (20:04)
[2023-05-15] MEDS: MELATONIN 5 MG TABLET PO SCH (20:05)
[2023-05-15] MEDS: OLANZapine 10 MG RAPDIS TABLET PO SCH (20:05)
[2023-05-15] MEDS: DIVALPROEX SODIUM 500 MG ER TABLET PO SCH (20:05)
[2023-05-15 20:18] VITALS: BP 108/60; PULSE 80; RESP 18; TEMP 98.4; O2SAT 98
[2023-05-16] MEDS: LITHIUM CARBONATE 300 MG CAPSULE PO SCH ×4 (08:25→20:13)
[2023-05-16] MEDS: OMEGA-3/DHA/EPA/FISH OIL 1,000 MG CAPSULE PO SCH (08:25)
[2023-05-16] MEDS: MULTIVITAMINS WITH MINERALS, THERAPEUTIC TABLET PO SCH (08:25)
[2023-05-16 08:30] VITALS: BP 118/69; PULSE 76; RESP 17; TEMP 97.9; O2SAT 100
[2023-05-16 20:07] VITALS: BP 107/61; PULSE 72; RESP 18; TEMP 97.6; O2SAT 96
[2023-05-16] MEDS: OLANZapine 10 MG RAPDIS TABLET PO SCH (20:12)
[2023-05-16] MEDS: MELATONIN 5 MG TABLET PO SCH (20:13)
[2023-05-16] MEDS: TraZODone HCL 50 MG TABLET PO SCH (20:13)
[2023-05-16] MEDS: DIVALPROEX SODIUM 500 MG ER TABLET PO SCH (20:13)
[2023-05-17 08:32] VITALS: BP 104/69; PULSE 72; RESP 18; TEMP 97.7; O2SAT 98
[2023-05-17] MEDS: MULTIVITAMINS WITH MINERALS, THERAPEUTIC TABLET PO SCH (08:39)
[2023-05-17] MEDS: OMEGA-3/DHA/EPA/FISH OIL 1,000 MG CAPSULE PO SCH (08:39)
[2023-05-17] MEDS: LITHIUM CARBONATE 300 MG CAPSULE PO SCH (08:39)
== END 2023-05-17 11:20 | disposition home or self-care (01) | DRG 750 ==
LOC: EMS 17:15 → B3A 03-15 11:24 → B2S 03-19 16:06
PROVIDERS: ADMIT Psychiatry & Neurology Psychiatry; ATTEND Psychiatry & Neurology Psychiatry
DX: F25.0 Schizoaffective disorder, bipolar type (principal); G93.41 Metabolic encephalopathy; F31.60 Bipolar disorder, current episode mixed, unspecified; F70 Mild intellectual disabilities; Z20.822 Contact with and (suspected) exposure to COVID-19; E87.6 Hypokalemia; F90.9 Attention-deficit hyperactivity disorder, unspecified type; F84.0 Autistic disorder; Z91.148 Patient's other noncompliance with medication regimen for other reason; Z79.899 Other long term (current) drug therapy
CPT/HCPCS: 80053; 80061; 80164; 80178; 80307; 81001; 83036; 84132; 84439; 84443; 84703; 85025; 86592; 87081; 99285; G0480; J1200; J1630; J2060; Q9967

== ENCOUNTER 2023-03-18 22:04 | Emergency (ER) | payer MEDICAID ==
[~2023-03-18] VITALS: Ht 165.1 cm; Wt 54.5 kg
[2023-03-19 00:02] VITALS: TEMP 98.4
[2023-03-19 06:32] VITALS: BP 119/71; PULSE 76; RESP 18
== END 2023-03-19 08:03 | disposition admitted as inpatient to this hospital (09) ==
LOC: EMS 22:04
DX: S00.83XA Contusion of other part of head, initial encounter (principal); Y04.0XXA Assault by unarmed brawl or fight, initial encounter; Y93.89 Activity, other specified; Y92.89 Other specified places as the place of occurrence of the external cause; Y99.8 Other external cause status
CPT/HCPCS: 70450; 70486; 99285